=== PATIENT | male | born 1980 | race Caucasian/White ===

== ENCOUNTER 2022-06-21 15:04 | Outpatient (REF) | payer BC, SELFPAY ==
--- NOTE | 2022-06-21 13:30 | PAPFT_PTH ---
PATIENT: Jazzy Tilley LOC: [facility]#:[id number] AGE/SX: 41/M ROOM: RE06/21/[address]: LESLI LIMON : 1980 BED: DIS: 06/21/2022 SPEC #: [id number] RECD: 06/21/22 17:47 STATUS: BRENT REQ #: [id number] JOE: 06/21/22 13:[address]: Lesli Limon [facility]PT[facility] Cytology RECD BY: Michelle Abdi ENTERED: 06/21/22 17:47 SP TYPE: PAPFT OTHR DR: Cherri Zavala Tissues: 1 - CX/ENDOCX FOR PAP SMEARS Procedures: PAP THIN PREP/UVM Screening HPV DNA PROBE Comments: [id number] (HPV 16 & 18/45)
[2022-06-21 19:54] LABS: Abs Immature Grans 0.01 10^3/uL (0.0-0.06); Absolute Basophil Count 0.05 10^3/uL (0.0-0.2); Absolute Eosinophil Count 0.06 10^3/uL (0.0-0.7); Absolute Lymphocyte Count 2.37 10^3/uL (1.2-3.4); Absolute Monocyte Count 0.53 10^3/uL (0.1-0.8); Absolute Neutrophil Count 3.44 10^3/uL (1.2-6.7); Basophils % 0.8; Eosinophils % 0.9; HCT 40.8 % (40.0-50.0); HGB 14.1 g/dL (13.5-17.5); Immature Grans % 0.2; Lymphocytes % 36.7; MCH 34.6 pg (27.0-33.0); MCHC 34.6 % (32.0-36.0); MCV 100 fL (80-95); MPV 11.8 fL (8.0-11.0); Monocytes % 8.2; Neutrophils % 53.2; Platelet Count 194 10^3/uL (130-400); RBC 4.08 10^6/uL (4.36-5.78); RDW 12.3 % (11.8-14.1); RDW-SD 45.2 fL; WBC 6.46 10^3/uL (4.4-10.8)
[2022-06-21 20:03] LABS: ALT 33 U/L (16-63); AST 21 U/L (15-37); Albumin 3.9 g/dL (3.4-5.0); Alkaline Phosphatase 47 U/L (46-116); Anion Gap 4.6 mmol/L (3-11); BUN 13 mg/dL (7-18); Bilirubin, Total 0.3 mg/dL (0.2-1.0); CO2 29.4 mmol/L (21.0-32.0); CREATININE 0.8 mg/dL (0.70-1.30); Calcium 9.2 mg/dL (8.5-10.1); Calculated LDL 109 mg/dL (<100); Chloride 103 mmol/L (98-107); Cholesterol 224 mg/dL (<200); Estimated GFR 115.45 (mL/min/1.73m2); Glucose 96 mg/dL (74-106); HDL Cholesterol 97 mg/dL (40-60); Potassium 4.3 mmol/L (3.5-5.1); Sodium 137 mmol/L (136-145); Total Protein 7.3 g/dL (6.4-8.2); Triglyceride 94 mg/dL (<150)
== END 2022-06-21 15:05 | disposition home or self-care (01) ==
LOC: NCHCN 15:04
PROVIDERS: PCP Nurse Practitioner; Visit Provider Nurse Practitioner Family
DX: R42 Dizziness and giddiness (principal); E78.5 Hyperlipidemia, unspecified; Z00.00 Encounter for general adult medical examination without abnormal findings; Z12.4 Encounter for screening for malignant neoplasm of cervix; R87.612 Low grade squamous intraepithelial lesion on cytologic smear of cervix (LGSIL); Z11.51 Encounter for screening for human papillomavirus (HPV); R87.810 Cervical high risk human papillomavirus (HPV) DNA test positive
CPT/HCPCS: 80053; 80061; 88142; 85025; 87624

== ENCOUNTER 2022-08-17 17:03 | Outpatient (REF) | payer BC, SELFPAY ==
--- NOTE | 2022-08-17 13:35 | ENDO_PTH ---
PATIENT: Jazzy Tilley LOC: [facility] U#:[id number] AGE/SX: 41/M ROOM: RE08/17/[address]: Monique Knox : 1980 BED: DIS: 08/17/2022 SPEC #: [id number] RECD: 08/17/22 17:11 STATUS: BRENT FONSECA #: [id number] JOE: 08/17/22 13:[address]: Monique Knox DEPT: Surgical Specimen RECD BY: Michelle Abdi ENTERED: 08/17/22 17:12 SP TYPE: Endo OTHR DR: Cherri Zavala Tissues: 1 - ENDOCERVICAL BX/CURRETTE 2 - CERVICAL BIOPSY Procedures: GROSS AND MICRO LEVEL 4 Comments: [id number]
== END 2022-08-17 17:04 | disposition home or self-care (01) ==
LOC: LBN 17:03
PROVIDERS: PCP Nurse Practitioner; Visit Provider Obstetrics & Gynecology Gynecology
DX: R87.612 Low grade squamous intraepithelial lesion on cytologic smear of cervix (LGSIL)
CPT/HCPCS: 88305

== ENCOUNTER 2023-01-12 01:24 | Outpatient (CLI) | payer BC, SELFPAY ==
--- NOTE | 2023-01-12 11:56 | DI.MAMMO_ITS ---
Exam(s) MAMMO SCREENING EXAM: MAMMO SCREENING CLINICAL HISTORY: SCREENING, Z12.39, FIBROCYSTIC CHANGES, N60.19. TECHNIQUE: Bilateral full field digital CC and MLO mammographic images were obtained with 3D tomosyn thesis and utilizing computer aided detection (CAD). COMPARISON: None. This is a baseline mammogram on this 42-year-old patient. FINDINGS: Fibroglandular tissue pattern is moderately dense, this somewhat decreasing the sensitivity of the ma mmogram for finding hidden underlying lesions. There are no CAD designations. There are no new spiculated masses nor malignant appearing microcalcification groups. There is no significant architectural distortion nor skin thickening-retraction. IMPRESSION: No radiographic evidence of malignancy. BI-RADS Category 1 - Negative Breast Density - Category C - Heterogeneously dense Breast density Category C or D implies that the patient has dense breast tissue. Dense breast tissue can make it harder to find cancer on a mammogram. Dense breast tissue is also associated with an incr eased risk of breast cancer. This information about the result of the mammogram report was provided to the patient to raise their awareness. Use this report when you speak with the patient about their risks for breast cancer, which includes their family history. At that time, you may recommend additional screening tests (Ultrasoun d or MRI) as these tests may add significant information. A negative radiographic report should not delay biopsy if a dominant or clinically suspicious mass is present. Up to ten percent of cancers are not identified on mammography. A negative report may reinforce clinical impression. Adenosis and dense breasts may obscure an underlying neoplasm. False positive reports average 6 to 10%. Patient will receive a letter notifying them of these results.
== END 2023-01-12 01:44 ==
LOC: DI 01:26
PROVIDERS: PCP Nurse Practitioner Family; Visit Provider Nurse Practitioner Family
DX: Z12.31 Encounter for screening mammogram for malignant neoplasm of breast (principal); R92.8 Other abnormal and inconclusive findings on diagnostic imaging of breast
CPT/HCPCS: 77063; 77067

== ENCOUNTER 2023-09-10 13:56 | Outpatient (REF) | payer BC, SELFPAY ==
--- NOTE | 2023-09-10 14:00 | PAPFT_PTH ---
PATIENT: Jazzy Tilley LOC: [facility] U#:[id number] AGE/SX: 42/F ROOM: RE09/10/[address]: Monique Knox : 1980 BED: DIS: 09/10/2023 SPEC #: [id number] RECD: 09/10/23 18:17 STATUS: BRENT REQ #: [id number] JOE: 09/10/23 14:[address]: Monique Knox DEPT: [facility] Cytology RECD BY: Michelle Abdi ENTERED: 09/10/23 18:18 SP TYPE: PAPFT OTHR DR: Lesli Limon Tissues: 1 - CX/ENDOCX FOR PAP SMEARS Procedures: PAP THIN PREP/UVM Screening HPV DNA PROBE Comments: [id number]
== END 2023-09-10 13:57 | disposition home or self-care (01) ==
LOC: LBN 13:56
PROVIDERS: PCP Nurse Practitioner Family; Visit Provider Obstetrics & Gynecology Gynecology
DX: Z12.4 Encounter for screening for malignant neoplasm of cervix (principal); R87.613 High grade squamous intraepithelial lesion on cytologic smear of cervix (HGSIL); Z11.51 Encounter for screening for human papillomavirus (HPV); R87.810 Cervical high risk human papillomavirus (HPV) DNA test positive
CPT/HCPCS: 88142; 87624

== ENCOUNTER 2023-11-12 13:55 | Outpatient (REF) | payer BC, SELFPAY ==
--- NOTE | 2023-11-12 13:50 | CER_PTH ---
PATIENT: Jazzy Tilley LOC: [facility] U#:[id number] AGE/SX: 42/F ROOM: RE11/12/[address]: Monique Knox : 1980 BED: DIS: 11/12/2023 SPEC #: [id number] RECD: 11/12/23 15:48 STATUS: BRENT RERobert #: [id number] JOE: 11/12/23 13:[address]: Monique Knox DEPT: Surgical Specimen RECD BY: Michelle Abdi ENTERED: 11/12/23 15:50 SP TYPE: [place] DR: Lesli Limon Tissues: 1 - CERVICAL LEEP/LOOP 2 - CERVICAL LEEP/LOOP 3 - CERVICAL LEEP/LOOP 4 - CERVICAL LEEP/LOOP Procedures: IMMUNOPEROXIDASE STAIN GROSS AND MICRO LEVEL 5 Comments: [id number]
== END 2023-11-12 13:56 | disposition home or self-care (01) ==
LOC: LBN 13:55
PROVIDERS: PCP Nurse Practitioner Family; Visit Provider Obstetrics & Gynecology Gynecology
DX: R87.619 Unspecified abnormal cytological findings in specimens from cervix uteri (principal); Z98.890 Other specified postprocedural states
CPT/HCPCS: 88307; 88361

== ENCOUNTER 2024-01-25 01:18 | Outpatient (CLI) | payer BC, SELFPAY ==
--- NOTE | 2024-01-25 14:45 | DI.MAMMO_ITS ---
Exam(s) MAMMO SCREENING EXAM: MAMMO SCREENING CLINICAL HISTORY: Z12.31 SCREENING MAMMO TECHNIQUE: Mammograms were interpreted according to the usual protocol including computer analysis w Transmit CAD system, tomosynthesis and C-view imaging. COMPARISON: 2022 FINDINGS: The breasts are composed of heterogeneously dense fibroglandular densities, Breast Density category C . No suspicious masses or suspicious microcalcifications are seen. No skin thickening or abnormal axillary lymph nodes are seen. There has been no significant change from prior exams. IMPRESSION: BI-RADS Category 1, Negative mammogram. Yearly screening mammography is recommended. Breast Density Category C, heterogeneously Dense. The mammogram demonstrates the patient's breast tissue is dense. Dense breast tissue is very common a nd is not abnormal but dense breast tissue can make it harder to find cancer on a mammogram. Also, de nse breast tissue may increase breast cancer risk. This information about the result of the mammogram report was provided to the patient to raise their awareness. Use this report when you speak with the patient about their risks for breast cancer, which includes their family history. At that time, you may recommend additional screening tests (Ultrasound or MRI) as they might be useful based on their r isk. A negative radiographic report should not delay biopsy if a dominant or clinically suspicious mass is present. Up to ten percent of cancers are not identified on mammography. A negative report may reinforce clinical impression. Adenosis and dense breasts may obscure an underlying neoplasm. False positive reports average 6 to 10%.
== END 2024-01-25 01:38 ==
LOC: DI 01:19
PROVIDERS: Visit Provider Internal Medicine
DX: Z12.31 Encounter for screening mammogram for malignant neoplasm of breast (principal)
CPT/HCPCS: 77063; 77067